=== PATIENT | male | born 1995 | race Caucasian/White ===

== ENCOUNTER 2019-11-20 00:59 | Emergency (ER) | payer SELFPAY ==
[~2019-11-20] VITALS: Ht 193 cm; Wt 90.7 kg
[2019-11-20 01:06] VITALS: BP 152/101
--- NOTE | 2019-11-20 01:06 | NUR ---
ED Nurse Note: Patient walked in to ED for medical clearance. Reports left rib cage pain. Denies fall/ injury. Patient is under custody.
--- NOTE | 2019-11-20 01:10 | NUR ---
ED Nurse Note: ERMD at bedside.
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
[2019-11-20] MEDS ORDERED: IBUPROFEN600 MG ORAL (01:26)
--- NOTE | 2019-11-20 01:38 | NUR ---
ED Nurse Note: Patient was taken for Xray.
--- NOTE | 2019-11-20 01:55 | NUR ---
ED Nurse Note: Patient came back from Xray. Not in any distress.
[2019-11-20 02:40] VITALS: BP 135/78
--- NOTE | 2019-11-20 02:40 | NUR ---
ED Nurse Note: Pt cleared by ERMD for discharge. DC instructions/prescription was given and explained to pt and verbalized understanding of teachings. All medical deviecs such as ID band removed. Pt is AAO x4, ambulatory and left with all personal belongings. Patient was accompanied by [employer].
--- NOTE | 2019-11-20 12:30 | Diagnostic Imaging Report ---
Indication: Chest and left rib pain status post injury Technique: PA view of the chest. 4 views of the left ribs. Comparison: None Findings: Heart size and mediastinal contours within normal limits. There is no focal airspace consolidation, pleural effusion, pneumothorax or evidence of pulmonary edema. Bone mineralization within normal limits. No definite/displaced acute rib fractures identified. No acute osseous abnormality is seen. Impression: No definite/displaced left-sided rib fracture. Lungs are clear, without evidence of pleural effusion or pneumothorax.
== END 2019-11-20 02:40 ==
LOC: EMR 01:09
DX: S20.212A Contusion of left front wall of thorax, initial encounter (principal); I10 Essential (primary) hypertension; Z88.1 Allergy status to other antibiotic agents; Y04.0XXA Assault by unarmed brawl or fight, initial encounter; Y93.9 Activity, unspecified; Y92.9 Unspecified place or not applicable
CPT/HCPCS: 82962; 99283